=== PATIENT | female | born 1995 | race Caucasian/White ===

== ENCOUNTER 2018-01-23 09:42 | Outpatient (REF) | payer BC, SELFPAY ==
--- NOTE | 2018-01-23 09:00 | PAPFT_PTH ---
PATIENT: EUNICE ANTONY LOC: [facility] U#:[id number] AGE/SX: 22/F ROOM: RE01/23/[address]: Daria Miner NP : 1995 BED: DIS: 01/23/2018 SPEC #: [id number] RECD: 01/23/18 12:47 STATUS: JOSE R TOSCANO #: [id number] RAFAELA: 01/23/18 09:[address]: Daria Miner NP DEPT: [facility] Cytology RECD BY: Renetta Suárez ENTERED: 01/23/18 12:48 SP TYPE: PAPFT NAN DR: Arabella Local Tissues: 1 - CX/ENDOCX FOR PAP SMEARS Procedures: PAP THIN PREP/UVM Screening Comments: [id number] (CHLAMYDIA/GC)
[2018-01-25 14:49] LABS: Chlamydia Result Negative; GC Result Negative; Specimen Description SEE COMMENTS
== END 2018-01-23 10:02 ==
LOC: LBN 09:42
PROVIDERS: Visit Provider Nurse Practitioner Women's Health
DX: Z11.4 Encounter for screening for human immunodeficiency virus [HIV] (principal); Z11.3 Encounter for screening for infections with a predominantly sexual mode of transmission
CPT/HCPCS: 87491; 87591; 88142

== ENCOUNTER 2018-08-23 12:29 | Emergency (ER) | payer BC, SELFPAY ==
[2018-08-23 12:36] VITALS: BP 115/57; PULSE 69; RESP 16; TEMP 36.5; O2SAT 97
--- NOTE | 2018-08-23 12:58 | W.ED.GENAD ---
Discharge Plan Disposition Patient Disposition: HOME Condition: Fair Discharge Details Chief Complaint: Abd Prob Clinical Impression: Abdominal pain, Back pain Primary Care Provider: Shadi Bell ED Provider: Diana Whalen Home Meds and New Rx's Prescriptions: Continued levonorgestrel [Mirena] 20 mcg/24 hr (5 years) intrauterine device 1 insert IY ONCE RF: 0 ibuprofen 200 MG tablet 200 mg PO PRN PRNRF: 0 Discharge Instructions Instructions: Abdominal Pain (ED), Back Pain (ED) Additional Instructions: Encourage hydration. Tylenol and/or Motrin as needed for discomfort. At this point, your imaging and labs are reassuring. This may be viral process or muscular. If you develop fevers/chills, inability to stay hydrated, or develop other new/worsening symptoms please seek care urgently once again. Please follow up with primary care next week if pain persists. Referrals: [facility] [Primary Care Provider] - Medical Decision Making Patient is 23-year-old female presents today with chief complaint of left upper quadrant and left CVA tenderness. She reports left upper quadrant pain has been intermittent over the past 1.5 weeks. Does not find any difference after eating. States that her appetite has been less than typical but thus far today sounds to have had a decent appetite. She denies any nausea vomiting. No change in bowel habits. No previous abdominal surgeries. Also endorsing left-sided back pain. She reports this began 3 weeks ago. She does have CVA tenderness left side. She denies any dysuria, hematuria, increased urgency frequency of urination. Abdomen is benign, no peritoneal findings. No pain with palpation. Labs are without signficant abnormality. US normal per radiologist. Discussed findings with the patient. Advised that as this is worse with movements, may be musculoskeletal in nature. Discussed may be viral. She continues to be concerned for more serious pathology and would like to move forward with imaging. We discussed risks/benefits of CT. She wishes to continue with imaging. CT reviewed by radiolgoist. They advise normal. In particular, patient was concerned for splenomegally, this was negative on CT. Discussed findings with the patient.Discussed possible differentials of pain. Advised f/u with PCP next week if pain persists. She is able to hydrate well orally, will continue with this. She was given strict return precautions. All questions and concerns were addressed, she is in agrement with this plan. HPI General Mode of arrival: ambulatory. Date/Time Provider Initiated Documentation: 08/23/18 12:36. Limitations to Documentation: no limitations. Information obtained by: patient and RN notes reviewed. History of Present Illness 23 year old F presents to the emergency department with the chief complaint of LUQ and left CVA tenderness, described as moderate, with intensity rated at 4. Quality is described as aching, and is localized to the back and abdomen. Patient reports no radiation (feels that her back pain and abdominal pain are not connected). Patient started experiencing this week(s) (3) and it has been intermittent. No relieving factors improve symptom(s), Other factors that worsen symptoms (better with standings or squatting) . Patient notes loss of appetite (states that she is eating less than typical); denies chest pain, cough, fever/chills, malaise, nausea/vomiting, rash, shortness of breath and weakness. Patient did receive the following treatments prior to arrival, none Related Data Home Medications Medication Instructions Recorded Confirmed ibuprofen 200 mg PO PRN PRN 04/11/17 08/23/18 levonorgestrel 20 mcg/24 hours (5 1 insert IY ONCE 01/23/18 08/23/18 yrs) 52 mg intrauterine device Allergies Allergy/AdvReac Type Severity Reaction Status Date / Time Sulfa (Sulfonamide Allergy Unknown Unverified 08/23/18 12:43 Antibiotics) General Stated Complaint: Abd Prob DOREEN: 3 Review of Systems Constitutional Reports as per HPI, Denies chills, Denies fatigue, Denies fever(s) and Denies headache(s) ENT Denies headache(s) Cardiovascular Reports as per HPI, Denies chest pain and Denies dyspnea Respiratory Reports as per HPI, Denies cough and Denies dyspnea Gastrointestinal Reports as per HPI Genitourinary Denies abnormal menses, Reports genital pruritis (states she was treated for BV, finished yesterday, resolution of symptoms), Denies dysuria, Denies pelvic pain, Reports flank pain, Denies urinary urgency, Denies vaginal discharge and Denies vaginal odor Musculoskeletal Reports as per HPI and Reports back pain (left CVA) Integumentary/Breasts Reports as per HPI and Denies rash Neurologic Reports as per HPI and Denies headache(s) Endocrine Denies fatigue [facility] Medical History IUD surveillance (Acute) Social History Smoking/Tobacco Use Status: Never Alcohol Intake: current Alcohol Intake frequency: holidays/special occasions only Drug use: Occasionally Substance use type: marijuana current occupation: Student Do you feel safe at home: Yes Do you feel safe in your relationship?: Yes Female Reproductive History Menstrual control method: progestin IUCD Exam Const General: cooperative, healthy appearing, comfortable, no acute distress and well developed Nutritional Appearance: average body habitus and well nourished Orientation: alert and awake HENMT Head: normal to inspection Mouth: moist mucous membranes Resp Effort & Inspection: normal respiratory effort, able to speak in complete sentences and no respiratory distress Auscultation: clear to auscultation bilaterally, no rales, no rhonchi and no wheezes Cardio Rate: regular rate Rhythm: regular rhythm Heart Sounds: S1 normal and S2 normal GI Inspection: normal to inspection, no edema and non-distended Palpation: soft, no hepatosplenomegaly, not firm, no guarding, no hernias, not rigid and nontender Percussion: normal to percussion Auscultation: normal bowel sounds Back/Spine/Pelvis Back: CVA tenderness (left) Skin General skin exam: no rashes or lesions noted Trauma: no lacerations or abrasions Neuro General: alert and awake Cognition: normal cognition Speech: speech normal Gait: normal gait Extrem General: normal to inspection, no pedal edema, no calf tenderness and normal gait Psych Appearance: grossly normal and well kempt Mental Status: mental status grossly normal Speech and Movement: speech and movement normal Course Vital Signs Temperature 36.5 C 08/23/18 12:36 Pulse 69 08/23/18 12:36 Respiratory Rate 16 08/23/18 12:36 Blood Pressure 115/57 L 08/23/18 12:36 Pulse Oximetry 97 08/23/18 12:36 Temperature 36.5 C 08/23/18 12:36 Temperature Source Temporal Artery Scan 08/23/18 12:36 Pulse 69 08/23/18 12:36 Respiratory Rate 16 08/23/18 12:36 Respiratory Effort Non-Labored 08/23/18 12:42 Blood Pressure 115/57 L 08/23/18 12:36 Blood Pressure Position Sitting 08/23/18 12:36 Pulse Oximetry 97 08/23/18 12:36 Oxygen Delivery Method Room Air 08/23/18 12:36 Oxygen Flow Rate 0 08/23/18 12:36 Pain Level 4 08/23/18 12:36
--- NOTE | 2018-08-23 13:02 | ED.GENADUL_ITS ---
Discharge Plan Disposition Patient Disposition: HOME Condition: Fair Discharge Details Chief Complaint: Abd Prob Clinical Impression: Abdominal pain, Back pain Primary Care Provider: Shadi Bell ED Provider: Diana Whalen Home Meds and New Rx's Prescriptions: Continued levonorgestrel [Mirena] 20 mcg/24 hr (5 years) intrauterine device 1 insert IY ONCE RF: 0 ibuprofen 200 MG tablet 200 mg PO PRN PRNRF: 0 Discharge Instructions Instructions: Abdominal Pain (ED), Back Pain (ED) Additional Instructions: Encourage hydration. Tylenol and/or Motrin as needed for discomfort. At this point, your imaging and labs are reassuring. This may be viral process or muscular. If you develop fevers/chills, inability to stay hydrated, or develop other new/worsening symptoms please seek care urgently once again. Please follow up with primary care next week if pain persists. Referrals: [facility] [Primary Care Provider] - Medical Decision Making Patient is 23-year-old female presents today with chief complaint of left upper quadrant and left CVA tenderness. She reports left upper quadrant pain has been intermittent over the past 1.5 weeks. Does not find any difference after eating. States that her appetite has been less than typical but thus far today sounds to have had a decent appetite. She denies any nausea vomiting. No change in bowel habits. No previous abdominal surgeries. Also endorsing left- sided back pain. She reports this began 3 weeks ago. She does have CVA tenderness left side. She denies any dysuria, hematuria, increased urgency frequency of urination. Abdomen is benign, no peritoneal findings. No pain with palpation. Labs are without signficant abnormality. US normal per radiologist. Discussed findings with the patient. Advised that as this is worse with movements, may be musculoskeletal in nature. Discussed may be viral. She continues to be concerned for more serious pathology and would like to move forward with imaging. We discussed risks/benefits of CT. She wishes to continue with imaging. CT reviewed by radiolgoist. They advise normal. In particular, patient was concerned for splenomegally, this was negative on CT. Discussed findings with the patient.Discussed possible differentials of pain. Advised f/u with PCP next week if pain persists. She is able to hydrate well orally, will continue with this. She was given strict return precautions. All questions and concerns were addressed, she is in agrement with this plan. HPI General Mode of arrival: ambulatory . Date/Time Provider Initiated Documentation: 08/23/18 12:36 . Limitations to Documentation: no limitations . Information obtained by: patient and RN notes reviewed . History of Present Illness 23 year old F presents to the emergency department with the chief complaint of LUQ and left CVA tenderness, described as moderate, with intensity rated at 4. Quality is described as aching, and is localized to the back and abdomen. Patient reports no radiation (feels that her back pain and abdominal pain are not connected). Patient started experiencing this week(s) (3) and it has been intermittent. No relieving factors improve symptom(s), Other factors that worsen symptoms (better with standings or squatting) . Patient notes loss of appetite (states that she is eating less than typical); denies chest pain, cough, fever/chills, malaise, nausea/vomiting, rash, shortness of breath and weakness. Patient did receive the following treatments prior to arrival, none Related Data Home Medications Medication Instructions Recorded Confirmed ibuprofen 200 mg PO PRN PRN 04/11/17 08/23/18 levonorgestrel 20 mcg/24 hours (5 1 insert IY ONCE 01/23/18 08/23/18 yrs) 52 mg intrauterine device Allergies Allergy/AdvReac Type Severity Reaction Status Date / Time Sulfa (Sulfonamide Allergy Unknown Unverified 08/23/18 12:43 Antibiotics) General Stated Complaint: Abd Prob DOREEN: 3 Review of Systems Constitutional Reports as per HPI, Denies chills, Denies fatigue, Denies fever(s) and Denies headache(s) ENT Denies headache(s) Cardiovascular Reports as per HPI, Denies chest pain and Denies dyspnea Respiratory Reports as per HPI, Denies cough and Denies dyspnea Gastrointestinal Reports as per HPI Genitourinary Denies abnormal menses, Reports genital pruritis (states she was treated for BV, finished yesterday, resolution of symptoms), Denies dysuria, Denies pelvic pain, Reports flank pain, Denies urinary urgency, Denies vaginal discharge and Denies vaginal odor Musculoskeletal Reports as per HPI and Reports back pain (left CVA) Integumentary/Breasts Reports as per HPI and Denies rash Neurologic Reports as per HPI and Denies headache(s) Endocrine Denies fatigue [facility] Medical History IUD surveillance (Acute) Social History Smoking/Tobacco Use Status: Never Alcohol Intake: current Alcohol Intake frequency: holidays/special occasions only Drug use: Occasionally Substance use type: marijuana current occupation: Student Do you feel safe at home: Yes Do you feel safe in your relationship?: Yes Female Reproductive History Menstrual control method: progestin IUCD Exam Const General: cooperative, healthy appearing, comfortable, no acute distress and well developed Nutritional Appearance: average body habitus and well nourished Orientation: alert and awake HENMT Head: normal to inspection Mouth: moist mucous membranes Resp Effort & Inspection: normal respiratory effort, able to speak in complete sentences and no respiratory distress Auscultation: clear to auscultation bilaterally, no rales, no rhonchi and no wheezes Cardio Rate: regular rate Rhythm: regular rhythm Heart Sounds: S1 normal and S2 normal GI Inspection: normal to inspection, no edema and non-distended Palpation: soft, no hepatosplenomegaly, not firm, no guarding, no hernias, not rigid and nontender Percussion: normal to percussion Auscultation: normal bowel sounds Back/Spine/Pelvis Back: CVA tenderness (left) Skin General skin exam: no rashes or lesions noted Trauma: no lacerations or abrasions Neuro General: alert and awake Cognition: normal cognition Speech: speech normal Gait: normal gait Extrem General: normal to inspection, no pedal edema, no calf tenderness and normal gait Psych Appearance: grossly normal and well kempt Mental Status: mental status grossly normal Speech and Movement: speech and movement normal Course Vital Signs Temperature 36.5 C 08/23/18 12:36 Pulse 69 08/23/18 12:36 Respiratory Rate 16 08/23/18 12:36 Blood Pressure 115/57 L 08/23/18 12:36 Pulse Oximetry 97 08/23/18 12:36 Temperature 36.5 C 08/23/18 12:36 Temperature Source Temporal Artery Scan 08/23/18 12:36 Pulse 69 08/23/18 12:36 Respiratory Rate 16 08/23/18 12:36 Respiratory Effort Non-Labored 08/23/18 12:42 Blood Pressure 115/57 L 08/23/18 12:36 Blood Pressure Position Sitting 08/23/18 12:36 Pulse Oximetry 97 08/23/18 12:36 Oxygen Delivery Method Room Air 08/23/18 12:36 Oxygen Flow Rate 0 08/23/18 12:36 Pain Level 4 08/23/18 12:36
[2018-08-23 13:23] LABS: Abs Immature Grans 0.01 k/cumm (0.0-0.09); Absolute Basophil Count 0.05 k/cumm (0.0-0.2); Absolute Eosinophil Count 0.05 k/cumm (0.0-0.7); Absolute Lymphocyte Count 2.25 k/cumm (1.2-3.4); Absolute Monocyte Count 0.66 k/cumm (0.11-0.7); Absolute Neutrophil Count 4.92 k/cumm (1.2-6.7); Basophils % 0.6; Eosinophils % 0.6; HCT 40.9 % (36.0-46.0); HGB 13.7 g/dL (12.0-15.5); Immature Grans % 0.1; Lymphocytes % 28.3; Mean Corp. HGB Concentration 33.5 g/dL (32.0-36.0); Mean Corpuscular Hemoglobin 30.4 pg (27.0-33.0); Mean Corpuscular Volume 90.7 fL (80-95); Mean Platelet Volume 10.5 fL (8.0-11.0); Monocytes % 8.3; Neutrophils % 62.1; Platelet Count 271 x1000/uL (130-400); RBC 4.51 m/cumm (4.00-5.20); RBC Distribution Width 13.2 % (11.7-14.6); White Blood Cell Count 7.94 k/cumm (4.4-10.8)
[2018-08-23 13:35] LABS: ALT 34 U/L (12-78); AST 29 U/L (15-37); Albumin 4.4 g/dL (3.4-5.0); Alkaline Phosphatase 79 U/L (46-116); Anion Gap 12.7 mmol/L (3-11); BUN 15 mg/dL (7-18); Bilirubin, Total 0.3 mg/dL (0.2-1.0); CO2 26.3 mmol/L (21.0-32.0); CREATININE 1.02 mg/dL (0.55-1.02); Calcium 9.6 mg/dL (8.5-10.1); Chloride 104 mmol/L (98-107); Glucose 64 mg/dL (70-100); Potassium 3.7 mmol/L (3.5-5.1); Sodium 143 mmol/L (136-145); Total Protein 7.9 g/dL (6.4-8.2)
[2018-08-23 13:39] LABS: Troponin I < 0.05 ng/mL (0.00-0.06)
[2018-08-23 13:49] LABS: Lipase 136 U/L (73-393)
[2018-08-23 13:49] LABS: Bilirubin Negative (Negative); Blood Negative (Negative); Clarity Clear; Glucose Negative (Negative); Ketones Negative (Negative); Leukocyte Esterase Negative (Negative); Nitrite Negative (Negative); Urobilinogen 0.2 EU/dL (Up TO 0.2)
--- NOTE | 2018-08-23 13:51 | DI.US_ITS ---
SYMPTOM/DIAGNOSIS: LT CVA TENDERNESS RENAL ULTRASOUND: The kidneys are normal in size and show normal parenchymal thickness and echogenicity. No renal calculi or hydronephrosis is identified. No renal mass is seen. The bladder was nearly empty. IMPRESSION: Negative renal ultrasound.
[2018-08-23] MEDS: Normal Saline 1,000 ML 1000 ML IV (13:55)
--- NOTE | 2018-08-23 14:24 | DI.CT_ITS ---
SYMPTOMS/DIAGNOSIS: LEFT UPPER QUADRANT PAIN CT OF THE ABDOMEN AND PELVIS: Images were performed from the lung bases through the ischial tuberosities after IV and without oral contrast. The lung bases are clear. The liver, spleen, pancreas, adrenals and kidneys have a normal appearance. There is no evidence of renal calculi or hydronephrosis. The renal perfusion appears normal and symmetric. There is no bowel dilatation, free air or free fluid. There is a normal quantity of stool. An IUD is noted in the uterus. There is a dominant follicle of the left ovary. The right ovary and bladder are unremarkable. The appendix appears normal. There are bilateral L5 pars defects. No significant spondylolisthesis. IMPRESSION: No acute abnormality.
[2018-08-23] MEDS: Omnipaque 350 MG/ML 100 ML BTL IJ (14:54)
[2018-08-23] MEDS: Normal Saline Flush 10 ML SYR IVP (15:21)
[2018-08-23 15:22] VITALS: BP 121/65; PULSE 62; RESP 14; TEMP 37.1; O2SAT 100
== END 2018-08-23 15:29 | disposition home or self-care (01) ==
PROVIDERS: Emergency Provider Physician Assistant
DX: R10.12 Left upper quadrant pain (principal); M54.9 Dorsalgia, unspecified
CPT/HCPCS: 36415; 76770; 80053; 83690; 96360; 99285; 74177; 81003; 83735; 84484; 85025; 99284; J3490

== ENCOUNTER 2018-10-01 10:02 | Outpatient (REF) | payer BC, SELFPAY ==
[2018-10-01 12:56] LABS: HCT 41.8 % (36.0-46.0); HGB 13.8 g/dL (12.0-15.5); Mean Corpuscular Hemoglobin 29.6 pg (27.0-33.0); Mean Corpuscular Volume 89.5 fL (80-95); Mean Platelet Volume 10.1 fL (8.0-11.0); Platelet Count 200 x1000/uL (130-400); RBC 4.67 m/cumm (4.00-5.20); RBC Distribution Width 13.5 % (11.7-14.6); White Blood Cell Count 9.32 k/cumm (4.4-10.8)
[2018-10-01 13:31] LABS: Mono Screening POSITIVE (Negative)
[2018-10-01 13:48] LABS: ALT 485 U/L (12-78); AST 205 U/L (15-37); Albumin 3.6 g/dL (3.4-5.0); Alkaline Phosphatase 286 U/L (46-116); Anion Gap 10.9 mmol/L (3-11); BUN 9 mg/dL (7-18); Bilirubin, Total 0.3 mg/dL (0.2-1.0); CO2 25.1 mmol/L (21.0-32.0); CREATININE 0.93 mg/dL (0.55-1.02); Calcium 8.7 mg/dL (8.5-10.1); Chloride 104 mmol/L (98-107); Glucose 98 mg/dL (70-100); Potassium 4.6 mmol/L (3.5-5.1); Sodium 140 mmol/L (136-145); TSH (W/Ref FT4) 1.68 uIU/mL (0.36-3.74)
[2018-10-01 16:51] LABS: Abs Immature Grans 0.02 k/cumm (0.0-0.09)
[2018-10-01 17:08] LABS: Absolute Neutrophil Count 2.52 k/cumm (1.2-6.7)
[2018-10-01 17:09] LABS: Absolute Basophil Count 0.19 k/cumm (0.0-0.2); Absolute Lymphocyte Count 5.78 k/cumm (1.2-3.4); Absolute Monocyte Count 0.84 k/cumm (0.11-0.7); Atypical Lymphocytes % 8; Diff Comment Manual Differential; RBC Morphology Normal
== END 2018-10-01 10:22 ==
LOC: NCHCN 10:02
PROVIDERS: PCP Nurse Practitioner Family; Visit Provider Nurse Practitioner Family
DX: J35.1 Hypertrophy of tonsils (principal); J02.9 Acute pharyngitis, unspecified
CPT/HCPCS: 80053; 85027; 87077; 84443; 85007; 86308; 87070

== ENCOUNTER 2018-12-11 11:12 | Outpatient (REF) | payer BC, SELFPAY ==
[2018-12-11 19:30] LABS: HCT 39.1 % (36.0-46.0); Mean Corp. HGB Concentration 33.2 g/dL (32.0-36.0); Mean Corpuscular Hemoglobin 30.1 pg (27.0-33.0); Mean Corpuscular Volume 90.5 fL (80-95); Mean Platelet Volume 10.4 fL (8.0-11.0); Platelet Count 248 x1000/uL (130-400); RBC 4.32 m/cumm (4.00-5.20); RBC Distribution Width 13.5 % (11.7-14.6); White Blood Cell Count 6.56 k/cumm (4.4-10.8)
[2018-12-11 19:50] LABS: ALT 27 U/L (14-59); AST 30 U/L (15-37); Alkaline Phosphatase 72 U/L (46-116); Anion Gap 8.7 mmol/L (3-11); BUN 10 mg/dL (7-18); Bilirubin, Total 0.4 mg/dL (0.2-1.0); CO2 29.3 mmol/L (21.0-32.0); CREATININE 0.94 mg/dL (0.55-1.02); Calcium 8.6 mg/dL (8.5-10.1); Calculated LDL 70 mg/dL; Chloride 105 mmol/L (98-107); Cholesterol 140 mg/dL (50-200); Glucose 61 mg/dL (70-100); HDL Cholesterol 55 mg/dL (40-60); Potassium 3.8 mmol/L (3.5-5.1); Sodium 143 mmol/L (136-145); TSH (W/Ref FT4) 2.23 uIU/mL (0.36-3.74); Total Protein 7.1 g/dL (6.4-8.2); Triglyceride 79 mg/dL (30-150)
[2018-12-12 07:27] LABS: Vitamin D 25 Total 31.5 ng/ml (30-100)
[2018-12-13 10:29] LABS: HBs Antibody, Quant 7.4 mIU/mL; Hepatitis B Surface Ab Negative; Hepatitis B Surface Ag Negative (NEGAT); Hepatitis C Ab w Rflx HCV PCR Negative (NEGAT)
[2018-12-13 11:54] LABS: HIV-1/2 Ag & Ab Screen Negative (NEGAT)
[2018-12-13 13:04] LABS: Syphilis Serology (RPR) Negative (Negative)
[2018-12-13 15:12] LABS: Chlamydia Result Negative (Negative); GC Result Negative (Negative); Specimen Description VAGINAL
== END 2018-12-11 11:32 ==
LOC: NCHCN 11:12
PROVIDERS: PCP Nurse Practitioner Family; Visit Provider Nurse Practitioner
DX: R53.83 Other fatigue (principal); F32.9 Major depressive disorder, single episode, unspecified; Z11.3 Encounter for screening for infections with a predominantly sexual mode of transmission; Z11.4 Encounter for screening for human immunodeficiency virus [HIV]; Z11.59 Encounter for screening for other viral diseases
CPT/HCPCS: 80053; 80061; 82306; 85027; 86706; 86803; 87340; 87389; 87491; 87591; 84443; 86592